=== PATIENT | female | born 1985 | race Hispanic/Latino ===

== ENCOUNTER 2016-08-01 20:12 | Inpatient (IN) | payer MEDICAID ==
[2016-08-01] MEDS ORDERED: Sodium Chloride 0.9% 1,000 ML IV ONE (20:49)
--- NOTE | 2016-08-01 20:58 | C.PDOC ---
History Of Present Illness 31 y/o female pmhx bipolar, polysubstance abuser presents to the ED with complaints of withdrawal symptoms. Pt states has been off of psych medications for the last 3 weeks and is seeking detox. Pt complaining of questionable seizure activity yesterday. Pt uses 20-25 bags IV heroin daily, 6mg Xanax daily. Pt was under the care of " Dr Dano Cha " psychologist until June, dismissed from his practice for dirty urine and polysubstance abuse. Last xanax taken 3 days ago, last used heroin today. Denies chest pain, SOB, vomiting or any other complaints. Time Seen by Provider: 08/01/16 20:41 Chief Complaint (Nursing): Psychiatric Evaluation History Per: Patient History/Exam Limitations: no limitations Onset/Duration Of Symptoms: Days Current Symptoms Are (Timing): Still Present Modifying Factor(s): Narcotics Severity: Moderate Involuntary Hold By: None Recent travel outside of the [place]: No Past Medical History Reviewed: Historical Data, Nursing Documentation, Vital Signs Vital Signs: Last Vital Signs Temp 97.8 F 08/02/16 03:00 Pulse 60 08/02/16 03:00 Resp 20 08/02/16 03:00 BP 104/68 08/02/16 03:00 Pulse Ox 98 08/02/16 03:00 - Medical History PMH: Anxiety, Depression, Seizures Family History: States: Unknown Family Hx - Social History Hx Alcohol Use: No Hx Substance Use: Yes Review Of Systems Except As Marked, All Systems Reviewed And Found Negative. Cardiovascular: Negative for: Chest Pain Respiratory: Negative for: Shortness of Breath Gastrointestinal: Negative for: Vomiting Neurological: Positive for: Seizures (questionnable) Physical Exam - Physical Exam Appears: Non-toxic, No Acute Distress, Other (Anxious, pressured speech) Skin: Warm, Dry, No Rash, Other (no piloerection) Head: Atraumatic, Normacephalic Eye(s): bilateral: Normal Inspection, PERRL, EOMI Oral Mucosa: Moist Throat: Normal, No Erythema Neck: Normal, Normal ROM, Supple Chest: Symmetrical Cardiovascular: Rhythm Regular, No Murmur Respiratory: Normal Breath Sounds, No Rales, No Rhonchi, No Wheezing Gastrointestinal/Abdominal: Normal Exam, Soft, No Tenderness Extremity: Normal ROM, No Pedal Edema Extremity: Bilateral: Atraumatic, Other (Track covarrubias to arms) Neurological/Psych: Oriented x3, Normal Cognition ED Course And Treatment - Laboratory Results Result Diagrams: 08/01/16 21:29 08/01/16 21:29 Lab Interpretation: Abnormal (tox + opiates/cannabanoids) Urine POC: Negative O2 Sat by Pulse Oximetry: 100 (room air) Pulse Ox Interpretation: Normal Progress Note: Plan: EKG, labs, ativan, UA, IV fluids, CRISIS evaluation Reevaluation Time: 00:48 Reassessment Condition: Improved - Physician Consult Information Outcome Of Conversation: d/w Crisis workers @ 2045 and 0045, ok to Psych Medical Decision Making Medical Decision Making: bipolar, heroine and xanax abuse. Disposition Doctor Will See Patient In The: Hospital Counseled Patient/Family Regarding: Studies Performed, Diagnosis - Disposition Disposition: HOSPITALIZED Disposition Time: 00:48 Condition: GOOD - Clinical Impression Clinical Impression: Bipolar 1 disorder, Heroin abuse, Benzodiazepine abuse - Scribe Statement The provider has reviewed the documentation as recorded by the Fanny Ortiz Provider Attestation: All medical record entries made by the Fanny were at my direction and personally dictated by me. I have reviewed the chart and agree that the record accurately reflects my personal performance of the history, physical exam, medical decision making, and the department course for this patient. I have also personally directed, reviewed, and agree with the discharge instructions and disposition.
[2016-08-01 21:15] LABS: RBC URINE 4 /hpf (0-3); URINE BACTERIA RARE (<OCC); URINE BILIRUBIN NEGATIVE (NEGATIVE); URINE COLOR Yellow (YELLOW); URINE GLUCOSE (UA) NORMAL (Normal); URINE KETONE NEGATIVE (NEGATIVE); URINE PROTEIN NEGATIVE (NEGATIVE); URINE UROBILINOGEN NORMAL mg/dL (0.2-1.0); WBC URINE 5 /hpf (0-5)
[2016-08-01 21:16] LABS: URINE BLOOD 1+ (NEGATIVE); URINE LEUKOCYTE ESTERASE TRACE Leu/uL (Negative)
[2016-08-01 21:36] LABS: BASO # 0.1 K/uL (0.0-0.2); EOS # 0.1 K/uL (0.0-0.7); EOS % 1.3 % (0.0-4.0); HEMATOCRIT 39.1 % (34.0-47.0); LYMPH # 3.6 K/uL (1.0-4.3); MEAN CELL VOLUME 88.4 fL (81.0-99.0); MEAN CORPUSCULAR HEMOGLOBIN 29.3 pg (27.0-31.0); MEAN CORPUSCULAR HGB CONC 33.1 g/dL (33.0-37.0); MEAN PLATELET VOLUME 10.4 fL (7.2-11.7); MONO # 0.7 K/uL (0.0-0.8); MONO % 6.7 % (0.0-10.0); RED CELL DISTRIBUTION WIDTH 14.1 % (11.5-14.5); WHITE BLOOD COUNT 10.7 K/uL (4.8-10.8)
[2016-08-01 21:44] LABS: CHLORIDE 102 mmol/L (98-107)
[2016-08-01 21:45] LABS: POTASSIUM 4.1 mmol/L (3.6-5.2); SODIUM 138 mmol/L (132-148)
[2016-08-01 21:47] LABS: ALB/GLOB RATIO 1.5 (1.0-2.1); ALKALINE PHOSPHATASE 78 U/L (38-126); AST/SGOT 17 U/L (14-36); BILIRUBIN,TOTAL 0.4 mg/dL (0.2-1.3); BLOOD UREA NITROGEN 12 mg/dL (7-17); CARBON DIOXIDE 24 mmol/L (22-30); GFR AFRICAN-AMERICAN > 60; TOTAL PROTEIN 7.5 g/dL (6.3-8.3)
[2016-08-01 21:48] LABS: ALCOHOL SERUM < 10 mg/dl (0-10); ALT/SGPT 24 U/L (9-52); GLUCOSE,RANDOM 91 mg/dL (65-105)
[2016-08-02 03:14] VITALS: O2SAT 100
[2016-08-02] MEDS ORDERED: Aluminum Hydroxide/Magnesium Hydroxide Susp (30 mL) PO PRN (08:20)
--- NOTE | 2016-08-02 11:55 | PCM.PSYCH ---
Initial Psychiatric Evaluation - Initial Psychiatric Evaluation Type of Admission: Voluntary Legal Status: Capacity Chief Complaint (in patient's own words): "I needed help" History of Present Illness and Precipitating Events: The patient is seen, chart reviewed and case discussed. 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 The patient reports depressive symptoms and "lots of" anxiety. She had passive suicidal ideation and wanted to but denies any plan. She says she was traumatized as a child but doesn't want to talk about it. She reports panic attacks, excessive worrying, low self-esteem, anhedonia, poor sleep/appetite/ energy/concentration. She also uses heroin up to 30 bags IV for the past 6 months but she started about 9 years ago. Her longest sobriety was 2 years, on Suboxone. She also uses Xanax up to 6 mg a day for the last 6 months, mostly prescribed. She smokes 2 packs per day cigarettes. She denies all other drugs and alcohol. She was in detox 3 times and rehabilitation once at [facility]. She wants to go to an [facility] after treatment here. She is on high-dose Topamax, as well as Zoloft and Neurontin. However, she has not been taking them for about for 5 days. past psych hx: No admissions, suicide attempts but tx for anx/depression. Medical hx: Denies family psych hx: Denies Current Medications: Active Medications Generic Name Dose Route Start Last Admin Trade Name Freq PRN Reason Stop Dose Admin Al Hydrox/Mg Hydrox/Simethicone 30 ml 08/02/16 08:20 Maalox 30 Ml PO TID PRN Indigestion / Heartburn Chlordiazepoxide 25 mg 08/02/16 03:56 08/02/16 10:15 Librium PO 25 mg Q6 PRN Administration withdrawal symptoms Chlordiazepoxide 25 mg 08/02/16 06:00 08/02/16 06:48 Librium PO 08/06/16 05:59 25 mg Q6 RICH Administration Taper Clonidine HCl 0.1 mg 08/02/16 08:20 Catapres PO Q8 PRN COWS Score More or Equal to 5 Hydroxyzine HCl 50 mg 08/02/16 03:56 Atarax PO Q6 PRN Anxiety Ibuprofen 600 mg 08/02/16 08:21 Motrin Tab PO Q6H PRN Pain, moderate (4-7) Loperamide HCl 2 mg 08/02/16 08:20 Imodium PO Q8 PRN Diarrhea Methadone HCl 20 mg 08/02/16 10:00 08/02/16 10:46 Methadone PO 08/06/16 09:59 20 mg Q24H RICH Administration Taper Nicotine 1 patch 08/02/16 10:00 08/02/16 10:14 Nicoderm Cq TD 1 patch DAILY RICH Administration Ondansetron HCl 4 mg 08/02/16 08:20 Zofran Tab PO Q8 PRN Nausea/Vomiting Pneumococcal Polyvalent Vaccine 0.5 ml 08/04/16 10:00 Pneumovax 23 Vaccine IM 08/04/16 10:01 .ONCE ONE Trazodone HCl 50 mg 08/02/16 03:56 Desyrel PO HS PRN Sleep Past Psychiatric History - Past Psychiatric History Previous Treatment History: None Pertinent Medical Hx (Current Medical&Sleep Prob, Allergies): Allergies Allergy/AdvReac Type Severity Reaction Status Date / Time No Known Allergies Allergy Unverified 08/01/16 20:41 ALPRAZolam [Xanax] 1 mg PO BID 08/01/16 Gabapentin 300 mg PO BID 08/01/16 QUEtiapine [SEROquel] 600 mg PO DAILY 08/01/16 Sertraline [Zoloft] 100 mg PO DAILY 08/01/16 Topiramate [Topamax] 400 mg PO DAILY 08/01/16 traZODone [trazodone Hydrochloride] 100 mg PO HS 08/01/16 Review of Systems - Neurological Neurological: UNREMARKABLE - Psychiatric Psychiatric: Abnormal Sleep Pattern, Anhedonia, Anxiety, Change in Appetite, Depression, Difficulty Concentrating, Irritability. absent: Hallucinations, Homicidal Ideation, Suicidal Ideation Mental Status Examination - Personal Presentation Personal Presentation: Looks older than stated age - Affect Affect: Constricted - Motor Activity Motor Activity: Calm - Reliability in Providing Information Reliability in Providing Information: Good - Speech Speech: Organized - Mood Mood: Depressed, Anxious - Formal Thought Process Formal Thought Process: No Impairment - Cognitive Functions Orientation: Person, Place, Situation, Time Sensorium: Drowsy Attention/Concentration: Easily distracted Estimate of Intelligence: Average Judgement: Intact, as evidence by: Insight regarding need for hospitalization Memory: Recent intact, as evidence by: Ability to recall events of the day, Remote intact, as evidenced by: Abilit to recall sig. 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 - Recommended/Plan of Treatment Treatment Recommendations and Plan of Treatment: Depression and anxiety: Zoloft 100 mg to continue Gabapentin 300 mg to continue for anxiety She wants to continue her topamax too Support and psychoed CBT Attend groups and activities Opioids: Methadone detox As needed meds and vitamins Attend groups and activities [place] for abstinence and CBT for relapse prevention Support and psychoeducation Consider and encourage MAT Refer to an IOP Sedatives: Librium detox Gabapentin for augmentation As needed meds and vitamins Attend groups and activities [place] for abstinence and CBT for relapse prevention Support and psychoeducation Consider and encourage MAT Refer to after care, IOP 33 min Projected ELOS: 7 days Prognosis: good with treatment Discharge Plan and Discharge Criteria: No dep sxs and no wdw Refer to IOP and MAT - Smoking Cessation Smoking Cessation Initiated: Yes
[2016-08-03 07:45] VITALS: RESP 20
--- NOTE | 2016-08-03 13:24 | PCM.PYCHPN ---
Psychiatric Progress Note - Psychiatric Progress Note Patient seen today, length of contact: 19 min Patient Chief Complaint: "I am very very anxious" Problems Identified/Issues Discussed: The pt is seen alone and with the team, chart reviewed, case discussed with staff. Support given, CBT and MO used briefly No new symptoms reported, but severe anxiety, improving slowly and needs some more time No SEs from medications, risks discussed. After care discussed and she has an IOP and a therapist, psychiatrist to go to. She considered leaving AMA and put in a 48 hr notice but then agreed to stay until Wed and complete her detox Medication Change: Yes (detox adjusted, zoloft and gabapentin increased) Medical Record Reviewed: Yes Mental Status Examination - Cognitive Function Orientation: Person, Place, Situation, Time Memory: Intact Attention: WNL Concentration: Poor Association: WNL Fund of Knowledge: WNL - Mood Mood: Depressed, Anxious - Affect Affect: Constricted - Speech Speech: Appropriate - Formal Thought Process Formal Thought Process: No Impairment - Suicidal Ideation Suicidal Ideation: No - Homicidal Ideation Homicidal Ideation: No Goal/Treatment Plan - Goal/Treatment Plan Need for Continued Stay: Severe depression anxiety, Discharge may exacerbated symptoms, Severe functional impairment Progress Toward Problem(s) and Goals/Treatment Plan: Depression and anxiety: Zoloft 150 mg tomorrow Gabapentin 400 mg TID now, for anxiety tOPAMAX Support and psychoed CBT Attend groups and activities Opioids: Methadone detox As needed meds and vitamins Attend groups and activities MO for abstinence and CBT for relapse prevention Support and psychoeducation Consider and encourage MAT Refer to an IOP Sedatives: Librium detox ADJUSTED Gabapentin for augmentation As needed meds and vitamins Attend groups and activities [place] for abstinence and CBT for relapse prevention Support and psychoeducation Consider and encourage MAT Refer to after care, IOP Estimated Date of D/C: 08/05/16
[2016-08-04] MEDS ORDERED: Pneumococcal 23-Valent Vaccine IM ONE (10:00)
--- NOTE | 2016-08-04 14:20 | PCM.PYCHPN ---
Psychiatric Progress Note - Psychiatric Progress Note Patient seen today, length of contact: 21 min Patient Chief Complaint: "I am not decided on what to do" Problems Identified/Issues Discussed: The pt is seen, chart reviewed, case discussed with staff. Support given, CBT and OH used briefly No new symptoms reported, improving slowly and needs more time No SEs from medications, risks discussed. After care discussed and she called and got herself an appt from the psychiatrist at her therapist[facility] She wants to continue librium until Wed when her appt is She claims she has used "every medication and technique, ever" and nothing else worked but benzos, and she hopes to stay on a low dose and maybe "as needed" She says she suffers from anxiety even when she is having fun. Alternatives discussed, incl. TMS Medication Change: Yes (detox adjusted: 125 mg today) Medical Record Reviewed: Yes Mental Status Examination - Cognitive Function Orientation: Person, Place, Situation, Time Memory: Intact Attention: WNL Concentration: Poor Association: WNL Fund of Knowledge: WNL - Mood Mood: Depressed, Anxious - Affect Affect: Constricted - Speech Speech: Appropriate - Formal Thought Process Formal Thought Process: No Impairment - Suicidal Ideation Suicidal Ideation: No - Homicidal Ideation Homicidal Ideation: No Goal/Treatment Plan - Goal/Treatment Plan Need for Continued Stay: Severe depression anxiety, Discharge may exacerbated symptoms, Severe functional impairment Progress Toward Problem(s) and Goals/Treatment Plan: Depression and anxiety: Zoloft 150 mg tomorrow Gabapentin 400 mg TID now, for anxiety tOPAMAX Support and psychoed CBT Attend groups and activities Opioids: Methadone detox As needed meds and vitamins Attend groups and activities [place] for abstinence and CBT for relapse prevention Support and psychoeducation Consider and encourage MAT Refer to an IOP Sedatives: Librium detox ADJUSTED again Gabapentin for augmentation As needed meds and vitamins Attend groups and activities [place] for abstinence and CBT for relapse prevention Support and psychoeducation Consider and encourage MAT Refer to after jossie, [facility] Estimated Date of D/C: 08/05/16
--- NOTE | 2016-08-04 21:30 | CARD ---
APPROVED REPORT EKG Measurement Heart [id number] <Conclusion> Normal sinus rhythm Normal ECG
--- NOTE | 2016-08-05 09:22 | PCM.PYCHDC ---
Mental Status Examination - Mental Status Examination Orientation: Person, Place, Situation, Time Memory: Intact Mood: Anxious Affect: Constricted Speech: Appropriate Attention: WNL Concentration: WNL Association: WNL Fund of Knowledge: WNL Formal Thought Process: No Impairment Suicidal Ideation: No Current Homicidal Ideation?: No Discharge Summary - Discharge Note Reason for Hospitalization: Depression, SI, heroin abuse Consultations:: List each consultation separately and include: 1. Reason for request. 2. Findings. 3. Follow-up Summary of Hospital Course include:: 1. Description of specific treatment plan utilized for patients during their course of treatmen. 2. Summarize the time- course for resolution of acute symptoms and/or regressed behaviors. 3. Describe issues identified and worked on during hospitalization. 4. Describe medication utilized. 5. Describe medical problems identified and treated. 6. Reassessment of suicide risk Summary of Hospital Course: On admission: The patient is seen, chart reviewed and case discussed. 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 The patient reports depressive symptoms and "lots of" anxiety. She had passive suicidal ideation and wanted to but denies any plan. She says she was traumatized as a child but doesn't want to talk about it. She reports panic attacks, excessive worrying, low self-esteem, anhedonia, poor sleep/appetite/ energy/concentration. She also uses heroin up to 30 bags IV for the past 6 months but she started about 9 years ago. Her longest sobriety was 2 years, on Suboxone. She also uses Xanax up to 6 mg a day for the last 6 months, mostly prescribed. She smokes 2 packs per day cigarettes. She denies all other drugs and alcohol. She was in detox 3 times and rehabilitation once at [facility]. She wants to go to an [facility] after treatment here. She is on high-dose Topamax, as well as Zoloft and Neurontin. However, she has not been taking them for about for 5 days. Past psych hx: No admissions, suicide attempts but tx for anx/depression. Medical hx: Denies Family psych hx: Denies Hospital course: The pt was admitted and started on treatment with psychotherapy, support, psychoeducation and medications. [place] and CBT used. The pt attended groups and activities, as well as milieu therapy. All the risks and benefits of medications are discussed and the patient understood and agreed. After care discussed with the patient. SHe chose to go back to her therapist and see a psychiatrist at her clinic Also, she was detoxed from high doses of xanax and put on low dose klonopin until she sees her dr. She claimed no other meds or therapy has ever worked for her so far. Overall, she was pleasant and cooperative but did not want to stay longer. She even put in a 48 hr notice but then she agreed to stay until Wednesday. She is ma'ed within 48 hrs but wanted to wait for her ride in the hospital. She was appreciative. 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 Of note, she was NOT given #60 klonopin (it was inadvertently entered as 60), but #14, for a week as she has an appointment next Wednesday. She plans to stay on klonopin due to debilitating anxiety, for now. She knows the risks. Follow after care plan as discussed at [facility] Use relapse prevention skills Return to ER or call 911 if suicidal, homicidal or symptoms relapse. Stay away from stress, alcohol and drugs. See primary doctor once a year at least. Continue indiv tx Consider TMS Prescriptions/Medication Reconciliation: clonazePAM [Klonopin] 0.5 mg PO BID #60 tab Gabapentin [Neurontin] 600 mg PO TID #90 tab Sertraline [Zoloft] 100 mg PO BID #60 tab Topiramate [Topamax] 50 mg PO BID #60 tab traZODone [Desyrel] 50 mg PO HS PRN #30 tab PRN Reason: Sleep - Smoking Cessation Smoking Cessation Medication prescribed: No - Antipsychotic Medications Pt discharged on 2 or more routine antipsychotic medications: No
[2016-08-05 09:25] VITALS: BP 107/69; PULSE 78; TEMP 98.2
== END 2016-08-03 11:30 | disposition home or self-care (01) | DRG 430 ==
LOC: C.ER 20:12 → C.5E 08-02 00:49
PROVIDERS: ADMIT Psychiatry & Neurology Psychiatry; ATTEND Psychiatry & Neurology Psychiatry
PROC: GZ3ZZZZ Medication Management (ICD-10-PCS; principal; 2016-08-02)
PROC: HZ2ZZZZ Detoxification Services for Substance Abuse Treatment (ICD-10-PCS; 2016-08-02)
PROC: HZ59ZZZ Individual Psychotherapy for Substance Abuse Treatment, Supportive (ICD-10-PCS; 2016-08-02)
PROC: GZHZZZZ Group Psychotherapy (ICD-10-PCS; 2016-08-02)
PROC: HZ46ZZZ Group Counseling for Substance Abuse Treatment, Psychoeducation (ICD-10-PCS; 2016-08-02)
PROC: GZ56ZZZ Individual Psychotherapy, Supportive (ICD-10-PCS; 2016-08-02)
DX: F32.2 Major depressive disorder, single episode, severe without psychotic features (principal); F11.23 Opioid dependence with withdrawal; F13.230 Sedative, hypnotic or anxiolytic dependence with withdrawal, uncomplicated; F41.1 Generalized anxiety disorder; F17.210 Nicotine dependence, cigarettes, uncomplicated